=== PATIENT | female | born 1945 | race Caucasian/White ===

== ENCOUNTER 2017-07-02 14:18 | Emergency (ER) | payer MEDICARE ==
[~2017-07-02] VITALS: Ht 157.5 cm; Wt 59.0 kg
[~2017-07-02 14:18] MED LIST: NORT25CA PO; ZOLP10TA2 PO
[2017-07-02 14:22] VITALS: BP 155/92
== END 2017-07-02 15:41 | disposition home or self-care (01) ==
LOC: ER 14:20
DX: S90.851A Superficial foreign body, right foot, initial encounter (principal); M77.31 Calcaneal spur, right foot; W25.XXXA Contact with sharp glass, initial encounter; Y93.89 Activity, other specified; Y92.89 Other specified places as the place of occurrence of the external cause; Y99.8 Other external cause status
CPT/HCPCS: 73630-TC; A4606; Z7610